=== PATIENT | male | born 1985 | race Caucasian/White ===

== ENCOUNTER 2018-03-12 05:49 | Emergency (ER) | payer OTHER ==
[~2018-03-12] VITALS: Ht 175.3 cm; Wt 118.0 kg
[~2018-03-12 05:49] MED LIST: ALBU17I INH; CEPH500C3 PO; LORC10TA PO
[2018-03-12] MEDS ORDERED: methylPREDNISolone SOD SUCC 125 MG/2 ML VIAL IV PUSH ONE (06:00)
[2018-03-12] MEDS ORDERED: SODIUM CHLORIDE 0.9% FLUSH 10 ML FLUSH IVF PRN (06:00)
[2018-03-12] MEDS ORDERED: ONDANSETRON HCL 4 MG/2 ML VIAL IVP ONE (06:00)
[2018-03-12] MEDS ORDERED: SODIUM CHLOR 0.9% 1000 ML INJ 1,000 ML IV ONE ×2 (06:00)
[2018-03-12 06:10] VITALS: O2SAT 90
[2018-03-12 06:12] VITALS: O2SAT 96
[2018-03-12] MEDS: RESP: ALBUTEROL 2.5 MG/IPRATROPIUM 0.5 MG NEB (SCH) INH ×3 (06:12→06:31)
[2018-03-12 06:13] VITALS: O2SAT 96
--- NOTE | 2018-03-12 06:13 | PD ---
HPI Chief Complaint: Respiratory Distress Time Seen by Provider: 06:00 Travel History International Travel<30 days: No Contact w/Intl Traveler<30days: No Traveled to known affect area: No History of Present Illness HPI 32-year-old male presents to the emergency room with shortness of breath, fever , chills for the last few days. Wheezing has progressively gotten worse despite taking albuterol inhaler. Patient has a known history of asthma. Upon arrival to the ER the patient was in obvious distress and able to speak without difficulty. He speaks words only. Patient denies any chest pain, abdominal pain, back pain, injury or recent travel. PFSH Past Medical History Asthma: Yes Social History Alcohol Use: No Tobacco Use: No Substance Use: No Allergies-Medications (Allergen,Severity, Reaction): Coded Allergies: No Known Allergies (Unverified , 03/12/18) Reported Meds & Prescriptions Reported Meds & Active Scripts Active Reported Proventil Mdi (Albuterol Sulfate) 17 Gm Aero 17 Gm INH DIRECTED Review of Systems Except as stated in HPI: all other systems reviewed are Neg General / Constitutional: Positive: Fever, Chills Eyes: No: Blurred Vision, Redness, Pain HENT: No: Rhinorrhea, Congestion, Neck Stiffness, Neck Pain, Earache Cardiovascular: No: Chest Pain or Discomfort, Palpitations, Dyspnea on exertion Respiratory: Positive: Cough, Shortness of Breath, Wheezing Gastrointestinal: Positive: Nausea, Vomiting Genitourinary: No: Dysuria Musculoskeletal: No: Myalgias Skin: No Rash, No Hives Neurologic: No: Weakness, Dizziness, Syncope, Headache, Slurred Speech, Seizures Psychiatric: No: Suicidal Ideations Physical Exam Narrative GENERAL: Patient is alert and oriented -3 SKIN: Focused skin assessment warm/dry. HEAD: Atraumatic. Normocephalic. EYES: Pupils equal and round. No scleral icterus. No injection or drainage. ENT: No nasal bleeding or discharge. Mucous membranes pink and moist. NECK: Trachea midline. No JVD. CARDIOVASCULAR: Tachycardic regular rate and rhythm. No murmur appreciated. RESPIRATORY: Decreased air entry bilaterally with audible wheezing and coarse rhonchi throughout both [place] of the lungs. GASTROINTESTINAL: Abdomen soft, non-tender, nondistended. Hepatic and splenic margins not palpable. MUSCULOSKELETAL: No obvious deformities. No clubbing. No cyanosis. No edema. NEUROLOGICAL: Awake and alert. No obvious cranial nerve deficits. Motor grossly within normal limits. Normal speech. PSYCHIATRIC: Appropriate mood and affect; insight and judgment normal. Data Data Last Documented VS Vital Signs Date Time Temp Pulse Resp B/P (MAP) Pulse Ox O2 Delivery O2 Flow Rate FiO2 03/12/18 07:01 100.4 142 18 147/75 (99) 98 Nasal Cannula 2.00 Vital Signs Date Time Temp Pulse Resp B/P (MAP) Pulse Ox O2 Delivery O2 Flow Rate FiO2 03/12/18 07:01 100.4 142 18 147/75 (99) 98 Nasal Cannula 2.00 Vital Signs Date Time Temp Pulse Resp B/P (MAP) Pulse Ox O2 Delivery O2 Flow Rate FiO2 03/12/18 07:01 100.4 142 18 147/75 (99) 98 Nasal Cannula 2.00 03/12/18 06:58 146 03/12/18 06:45 24 97 Nasal Cannula 2.00 03/12/18 06:14 101.0 147 42 144/76 (98) 96 03/12/18 06:13 96 Nasal Cannula 2.00 03/12/18 06:13 96 Nasal Cannula 2.00 03/12/18 06:12 96 Nasal Cannula 2.00 03/12/18 06:10 90 Room Air 03/12/18 06:05 147 42 96 Nasal Cannula 2.00 Orders Orders Complete Blood Count With Diff (03/12/18 06:00) Comprehensive Metabolic Panel (03/12/18 06:00) Chest, Single Ap (03/12/18 06:00) Ecg Monitoring (03/12/18 06:00) Iv Access Insert/Monitor (03/12/18 06:00) Oximetry (03/12/18 06:00) Oxygen Administration (03/12/18 06:00) Methylprednisolone So Succ Inj (Solumedr (03/12/18 06:00) Ondansetron Inj (Zofran Inj) (03/12/18 06:00) Albuterol-Ipratropium Neb (Duoneb Neb) (03/12/18 06:00) Sodium Chloride 0.9% Flush (Ns Flush) (03/12/18 06:00) Lactic Acid (03/12/18 06:00) Sodium Chlor 0.9% 1000 Ml Inj (Ns 1000 M (03/12/18 06:00) Sodium Chlor 0.9% 1000 Ml Inj (Ns 1000 M (03/12/18 06:00) Blood Culture (03/12/18 06:00) Ceftriaxone Inj (Rocephin Inj) (03/12/18 07:15) Labs Laboratory Tests Test 03/12/18 06:00 White Blood Count 16.6 TH/MM3 Red Blood Count 4.70 MIL/MM3 Hemoglobin 14.6 GM/DL Hematocrit 43.3 % Mean Corpuscular Volume 92.0 FL Mean Corpuscular Hemoglobin 31.0 PG Mean Corpuscular Hemoglobin Concent 33.7 % Red Cell Distribution Width 12.7 % Platelet Count 179 TH/MM3 Mean Platelet Volume 10.7 FL Neutrophils (%) (Auto) 76.3 % Lymphocytes (%) (Auto) 16.0 % Monocytes (%) (Auto) 4.4 % Eosinophils (%) (Auto) 1.2 % Basophils (%) (Auto) 2.1 % Neutrophils # (Auto) 12.7 TH/MM3 Lymphocytes # (Auto) 2.7 TH/MM3 Monocytes # (Auto) 0.7 TH/MM3 Eosinophils # (Auto) 0.2 TH/MM3 Basophils # (Auto) 0.3 TH/MM3 CBC Comment DIFF FINAL Differential Comment Blood Urea Nitrogen 16 MG/DL Creatinine 1.10 MG/DL Random Glucose 126 MG/DL Total Protein 8.6 GM/DL Albumin 4.1 GM/DL Calcium Level 9.1 MG/DL Alkaline Phosphatase 53 U/L Aspartate Amino Transf (AST/SGOT) 15 U/L Alanine Aminotransferase (ALT/SGPT) 23 U/L Total Bilirubin 0.5 MG/DL Sodium Level 136 MEQ/L Potassium Level 3.3 MEQ/L Chloride Level 101 MEQ/L Carbon Dioxide Level 23.3 MEQ/L Anion Gap 12 MEQ/L Estimat Glomerular Filtration Rate 79 ML/MIN Lactic Acid Level 1.9 mmol/L Last 24 hours Impressions Chest X-Ray 03/12/18 0600 Signed Impressions: CONCLUSION: No acute cardiopulmonary disease identified. [facility] Medical Decision Making Medical Screen Exam Complete: Yes Emergency Medical Condition: Yes Medical Record Reviewed: Yes Differential Diagnosis Asthma exacerbation, acute bronchitis, pneumonia, pleural effusion, pericardial effusion, Narrative Course Patient improved after receiving 3 DuoNeb nebulizer treatments and steroids. There is decreased rhonchi and no signs of respiratory distress at this time. Case will be transferred to the incoming physician to continue the care for the patient. Diagnosis Primary Impression: Asthma exacerbation Additional Impression: Acute bronchitis Nitin Colindres MD Mar 12, 2018 06:13
[2018-03-12 06:14] VITALS: BP 144/76; PULSE 147; RESP 42; TEMP 101; O2SAT 96
[2018-03-12 06:16] LABS: AUTOMATED NEUTROPHIL # 12.7 TH/MM3 (1.8-7.7); BASOPHIL # 0.3 TH/MM3 (0-0.2); BASOPHIL % 2.1 % (0.0-2.0); EOSINOPHIL # 0.2 TH/MM3 (0-0.4); EOSINOPHIL % 1.2 % (0.0-4.0); HEMATOCRIT 43.3 % (39.0-51.0); HEMOGLOBIN 14.6 GM/DL (13.0-17.0); LYMPHOCYTE # 2.7 TH/MM3 (1.0-4.8); MEAN CORPUSCULAR HGB CONC 33.7 % (32.0-36.0); MEAN PLATELET VOLUME 10.7 FL (7.0-11.0); MONO % 4.4 % (0.0-8.0); MONOCYTE # 0.7 TH/MM3 (0-0.9); NEUT % 76.3 % (16.0-70.0); PLATELET COUNT 179 TH/MM3 (150-450); RED CELL DISTRIBUTION WIDTH 12.7 % (11.6-17.2); WHITE BLOOD COUNT 16.6 TH/MM3 (4.0-11.0)
[2018-03-12 06:27] LABS: CHLORIDE 101 MEQ/L (98-107); SODIUM (NA) 136 MEQ/L (136-145)
--- NOTE | 2018-03-12 06:29 | RADRPT ---
EXAM DATE: 03/12/2018 6:16 AM EDT AGE/SEX: 32 years / Male INDICATIONS: Wheezing, shortness of breath, and cough. CLINICAL DATA: This is the patient's initial encounter. Patient reports that signs and symptoms have been present for 3 days and indicates a pain score of 0/10. MEDICAL/SURGICAL HISTORY: Asthma. None. COMPARISON: No prior exams available for comparison. FINDINGS: Single AP view of the chest. The lungs are clear. Cardiomediastinal silhouette within nor mal limits. No evidence of pleural effusion or pneumothorax. CONCLUSION: No acute cardiopulmonary disease identified. Electronically signed by: Thuan Jones MD 03/12/2018 6:28 AM EDT
[2018-03-12 06:30] LABS: CALCIUM 9.1 MG/DL (8.5-10.1)
[2018-03-12 06:31] LABS: ALBUMIN 4.1 GM/DL (3.4-5.0); BICARBONATE 23.3 MEQ/L (21.0-32.0); BLOOD UREA NITROGEN 16 MG/DL (7-18); GLUCOSE,RANDOM 126 MG/DL (74-106)
[2018-03-12 06:34] LABS: ALT (GPT) 23 U/L (12-78); AST (GOT) 15 U/L (15-37); GLOMERULAR FILTRATION RATE 79 ML/MIN (>89)
[2018-03-12 06:36] LABS: TOTAL BILIRUBIN ADULT 0.5 MG/DL (0.2-1.0); TOTAL PROTEIN 8.6 GM/DL (6.4-8.2)
[2018-03-12 06:37] LABS: ALKALINE PHOSPHATASE 53 U/L (45-117)
[2018-03-12 06:45] VITALS: RESP 24; O2SAT 97
[2018-03-12 07:01] VITALS: BP 147/75; PULSE 142; RESP 18; TEMP 100.4; O2SAT 98
[2018-03-12] MEDS ORDERED: cefTRIAXone INJ 2,000 MG in SODIUM CHLORIDE 0.9% INJ 100 ML IV ONE (07:15)
[2018-03-12] MEDS ORDERED: cefTRIAXone 2,000 MG/NS 100 ML IV ONE ×2 (07:30)
[2018-03-12] MEDS ORDERED: POTASSIUM CHLORIDE 10 MEQ CONTROLLED RELEASE TAB PO ONE (08:15)
[2018-03-12] MEDS ORDERED: ACETAMINOPHEN 500 MG CPLT PO ONE (08:15)
[2018-03-12] MEDS ORDERED: AUGM875T3 PO (08:44)
[2018-03-12] MEDS ORDERED: PRED20 PO (08:44)
--- NOTE | 2018-03-12 08:44 | PD ---
Physical Exam Date Seen by Provider: Mar 12, 2018 Time Seen by Provider: 08:41 Narrative his 32-year-old male has a history of asthma. He had presented with cough fever and congestion. He has been given 3 DuoNeb's. His chest x-ray is negative. His white count is elevated at 16,000. He has been here for a while and recommendations were made for admission but the patient is declining admission. His oxygen saturations around 94-95% he does have persistent tachycardia. He has been given Solu-Medrol and Rocephin. He will be released with prescriptions for Augmentin and prednisone. Impression is asthma exacerbation, bronchitis Data Data Last Documented VS Vital Signs Date Time Temp Pulse Resp B/P (MAP) Pulse Ox O2 Delivery O2 Flow Rate FiO2 03/12/18 07:01 100.4 142 18 147/75 (99) 98 Nasal Cannula 2.00 Orders Orders Complete Blood Count With Diff (03/12/18 06:00) Comprehensive Metabolic Panel (03/12/18 06:00) Chest, Single Ap (03/12/18 06:00) Ecg Monitoring (03/12/18 06:00) Iv Access Insert/Monitor (03/12/18 06:00) Oximetry (03/12/18 06:00) Oxygen Administration (03/12/18 06:00) Methylprednisolone So Succ Inj (Solumedr (03/12/18 06:00) Ondansetron Inj (Zofran Inj) (03/12/18 06:00) Albuterol-Ipratropium Neb (Duoneb Neb) (03/12/18 06:00) Sodium Chloride 0.9% Flush (Ns Flush) (03/12/18 06:00) Lactic Acid (03/12/18 06:00) Sodium Chlor 0.9% 1000 Ml Inj (Ns 1000 M (03/12/18 06:00) Sodium Chlor 0.9% 1000 Ml Inj (Ns 1000 M (03/12/18 06:00) Blood Culture (03/12/18 06:00) Ceftriaxone Inj (Rocephin Inj) (03/12/18 07:30) Acetaminophen (Tylenol) (03/12/18 08:15) Potassium Chloride (Kcl) (03/12/18 08:15) Labs Laboratory Tests Test 6/13/18 06:00 White Blood Count 16.6 TH/MM3 Red Blood Count 4.70 MIL/MM3 Hemoglobin 14.6 GM/DL Hematocrit 43.3 % Mean Corpuscular Volume 92.0 FL Mean Corpuscular Hemoglobin 31.0 PG Mean Corpuscular Hemoglobin Concent 33.7 % Red Cell Distribution Width 12.7 % Platelet Count 179 TH/MM3 Mean Platelet Volume 10.7 FL Neutrophils (%) (Auto) 76.3 % Lymphocytes (%) (Auto) 16.0 % Monocytes (%) (Auto) 4.4 % Eosinophils (%) (Auto) 1.2 % Basophils (%) (Auto) 2.1 % Neutrophils # (Auto) 12.7 TH/MM3 Lymphocytes # (Auto) 2.7 TH/MM3 Monocytes # (Auto) 0.7 TH/MM3 Eosinophils # (Auto) 0.2 TH/MM3 Basophils # (Auto) 0.3 TH/MM3 CBC Comment DIFF FINAL Differential Comment Blood Urea Nitrogen 16 MG/DL Creatinine 1.10 MG/DL Random Glucose 126 MG/DL Total Protein 8.6 GM/DL Albumin 4.1 GM/DL Calcium Level 9.1 MG/DL Alkaline Phosphatase 53 U/L Aspartate Amino Transf (AST/SGOT) 15 U/L Alanine Aminotransferase (ALT/SGPT) 23 U/L Total Bilirubin 0.5 MG/DL Sodium Level 136 MEQ/L Potassium Level 3.3 MEQ/L Chloride Level 101 MEQ/L Carbon Dioxide Level 23.3 MEQ/L Anion Gap 12 MEQ/L Estimat Glomerular Filtration Rate 79 ML/MIN Lactic Acid Level 1.9 mmol/L [facility] Medical Record Reviewed: Yes Supervised Visit with ROX: Yes Differential Diagnosis Differential includes asthma exacerbation, pneumonia, bronchitis Narrative Course Patient has been given 3 nebs and Solu-Medrol. He is observed and saturations have improve. He does have tachycardia at around 125. Recommendations for admission have been made but he is declining. He does appear stable. He will be given prescriptions for Augmentin and prednisone Diagnosis Primary Impression: Asthma exacerbation Additional Impression: Acute bronchitis Scripts Prednisone (Prednisone) 20 Mg Tab 20 MG PO DIRECTED, #24 TAB 0 Refills Take 60 MG daily x 4 days, then 40 MG x 4 days, then 20 MG daily x 4 days. Prov: Armand Fortune MD 03/12/18 Amoxicillin-Clavulanate (Augmentin) 875-125 Mg Tab 1 TAB PO BID for Infection for 14 Days, #28 TAB 0 Refills Prov: Armand Fortune MD 03/12/18 Disposition: 01 DISCHARGE HOME Condition: Stable Armand Fortune MD Mar 12, 2018 08:44
== END 2018-03-12 08:59 | disposition home or self-care (01) ==
LOC: PHED 05:49
DX: J45.901 Unspecified asthma with (acute) exacerbation (principal); J20.9 Acute bronchitis, unspecified; R00.0 Tachycardia, unspecified; R11.2 Nausea with vomiting, unspecified
CPT/HCPCS: 71045; 80053; 83605; 85025; 87040; 94640; 94664; 96361; 96365; 96375; 99284; J0696; J2405; J2930; J7030